=== PATIENT | female | born 1990 | race Caucasian/White ===

== ENCOUNTER 2018-07-30 15:11 | Emergency (ER) | payer MEDICAID ==
[~2018-07-30] VITALS: Ht 154.9 cm; Wt 68.2 kg
[2018-07-30] MEDS ORDERED: LIDOCAINE 5% TRANSDERMAL PATCH TD ONE (17:00)
[2018-07-30] MEDS ORDERED: HYDROCODONE/ACETAMINOPHEN 5-325 MG TABLET PO ONE (17:00)
[2018-07-30] MEDS ORDERED: ONDANSETRON HCL 4 MG TABLET PO ONE (17:00)
[2018-07-30 19:54] VITALS: BP 110/50
== END 2018-07-30 20:02 | disposition home or self-care (01) ==
LOC: EMS 15:13
DX: M54.5 Low back pain (principal); R03.0 Elevated blood-pressure reading, without diagnosis of hypertension; Z88.6 Allergy status to analgesic agent
CPT/HCPCS: 72100; 81025; 99284; Q0162